=== PATIENT | female | born 1980 | race Caucasian/White ===

== ENCOUNTER 2016-12-04 05:34 | Day surgery (SDC) | payer OTHER ==
[2016-12-03 10:06] VITALS: BMI 26.8
[~2016-12-04] VITALS: Ht 160 cm; Wt 69.5 kg
[2016-12-04] VITALS (11 sets, daily range): BP systolic 109–127; BP diastolic 58–73; PULSE 63–78; RESP 13–23; Ht 160 cm; Wt 69.5 kg
[2016-12-04] MEDS ORDERED: CEFAZOLIN 2 GM/50 ML (PMX) 50 ML IVPB SCH (06:00)
[2016-12-04] MEDS ORDERED: TOBRAMYCIN 0.3% 3.5 GM OPH OINT ONE ×2 (06:49→08:49)
[2016-12-04] MEDS ORDERED: LIDOCAINE 4% (MPF) 5 ML INJ ONE (06:50)
[2016-12-04] MEDS ORDERED: CEFAZOLIN 1 GM INJ ONE (07:00)
--- NOTE | 2016-12-04 07:22 | HPN ---
Date/Time of Note Date/Time of Note DATE: 12/04/16 TIME: 07:22 Interval H&P Admission Note Pt. seen H&P reviewed: No system changes JED TRIANA MD Dec 04, 2016 07:22
[2016-12-04] MEDS ORDERED: morphine 2 MG INJ IV PRN (07:30)
[2016-12-04] MEDS ORDERED: ONDANSETRON 4 MG INJ IV PRN ×2 (07:30→08:30)
[2016-12-04] MEDS ORDERED: IBUPROFEN 400 MG TAB PO PRN (07:30)
[2016-12-04] MEDS ORDERED: FENTAnyl 50 MCG/ML VIAL ONE (07:32)
[2016-12-04] MEDS ORDERED: MIDAZOLAM 1 MG/ML 2 ML INJ ONE (07:33)
[2016-12-04] MEDS ORDERED: LIDOCAINE 1% (STERILE-PAK) 30 ML INJ ONE (07:33)
[2016-12-04] MEDS ORDERED: LIDOCAINE 1% (MPF) 30 ML INJ INJ ONE (08:02)
[2016-12-04] MEDS ORDERED: FENTAnyl 50 MCG/ML VIAL IV PRN (08:30)
[2016-12-04] MEDS ORDERED: DIPHENHYDRAMINE 50 MG INJ IV PRN (08:30)
[2016-12-04] MEDS ORDERED: ONDANSETRON 4 MG INJ ONE (08:52)
--- NOTE | 2016-12-04 09:05 | OPR ---
Date/Time of Note Date/Time of Note DATE: 12/04/16 TIME: 08:58 Operative Report Free Text/Dictation Plastic Surgery Operative Report Preoperative diagnosis: left eyelid basal cell Postoperative diagnosis: Same Procedure: Excision of left eyelid basal cell and advancement flap closure Surgeon: Manpreet Fofana.:n/a Anesthesia:sedation EBL:min IV fluids:per flow sheet Findings:n/a Complications:none Dispo:home Indications for procedure: 36-year-old female presents today for excision of a left eyelid basal cell and flap closure. The risks, benefits, alternatives of performing this procedure were discussed with the patient including the risks of bleeding, infection, wound healing problems, eyelid distortion, asymmetry, need for revision, and the patient states that she understands these risks and would like to proceed with the procedure. All questions were answered, no guarantees were given with regards to the outcome of this procedure. Description of procedure: The patient was brought to the operating room at [facility] where sedation was induced. The patient was then prepped and draped in usual sterile fashion. A 1 mm border was marked around the perimeter of the lesion. 3 cc of 1% lidocaine were injected into the surgical site. The 15 blade was then used to excise the marked area in its entirety. This was marked short stitch superior and long stitch lateral. This was sent for pathology. The medial margin was positive and therefore an additional specimen was excised. This margin was negative. Total area of excision was 1.2 x 0.7 cm. the wound was inspected, and in order to minimize eyelid distortion, an inferiorly based advancement flap was marked. An additional 2 cc of local anesthetic were injected into the flap. The border was then incised with a 15 blade. The flap was undermined with scissors and was gently advanced superiorly into the defect. This sat in place without undue tension. Therefore it was anchored in place with 5-0 Vicryl suture and then 5-0 nylon suture. Total size of the flap was 1 x 1 cm. Patient tolerated procedure well, there were no complications, follow-up information and wound care instructions were given. JED TRIANA MD Dec 04, 2016 09:05
== END 2016-12-04 12:05 | disposition home or self-care (01) ==
LOC: SDS 05:34 → EDBD 07:30 → SDS 12:05
PROVIDERS: ATTEND Surgery Plastic and Reconstructive Surgery
DX: C44.119 Basal cell carcinoma of skin of left eyelid, including canthus (principal)
CPT/HCPCS: 14060; 84703; 88305; 88331; J0690; J2250; J3010; Z7512; Z7610; J2405

== ENCOUNTER 2017-01-20 06:36 | Day surgery (SDC) | payer OTHER ==
[2017-01-20] VITALS (11 sets, daily range): BP systolic 104–121; BP diastolic 53–71; PULSE 70–80; RESP 16–22; Ht 160 cm; Wt 70.3 kg
[~2017-01-20] VITALS: Ht 160 cm; Wt 70.3 kg
[~2017-01-20 06:36] MED LIST: ATROPINE 1 MG/10 ML SYRINGE IV PRN; BUPIVACAINE 0.25%/EPI (SDV) 30 ML INJ ONE; CEFAZOLIN 2 GM/50 ML (PMX) 50 ML IVPB ONE; DEXAMETHASONE 4 MG/ML 1 ML INJ ONE; DIPHENHYDRAMINE 50 MG INJ IV PRN; EPHEDrine SULFATE 50 MG/5 ML SYG IV PRN; FENTAnyl 50 MCG/ML VIAL IV PRN; FENTAnyl 50 MCG/ML VIAL ONE; GLYCOPYRROLATE 0.4 MG INJ ONE; LABETALOL HCL 20MG INJ IV PRN; LIDOCAINE 2% (SDV) 5 ML INJ ONE; MEPERIDINE 25 MG INJ IV PRN; MIDAZOLAM 1 MG/ML 2 ML INJ IV PRN; MIDAZOLAM 1 MG/ML 2 ML INJ ONE; NEOSTIGMINE 3 MG/3 ML SYRINGE ONE; ONDANSETRON 4 MG INJ IV PRN; ONDANSETRON 4 MG INJ ONE; PROPOFOL 20 ML ONE; ROCURONIUM 50 MG INJ ONE; SOD CHLORIDE 0.9% 1,000 ML IV SCH; hydrALAzine 20 MG INJ IV PRN
[2017-01-20 07:20] LABS: ADD SCAN DIFF NO
[2017-01-20 07:24] LABS: BASOPHIL # 0.1 10^3/ul (0.0-0.1); BASOPHILS % 0.9 % (0.0-2.0); EOSINOPHILS # 0.2 10^3/ul (0.0-0.5); EOSINOPHILS % 3.8 % (0.0-7.0); HEMATOCRIT 39.2 % (37.0-47.0); HEMOGLOBIN 13.2 g/dl (12.0-16.0); LYMPHOCYTES # 2.4 10^3/ul (0.8-2.9); LYMPHOCYTES % 42.5 % (15.0-51.0); MEAN CORPUSCULAR HEMOGLOBIN 28.8 pg (29.0-33.0); MEAN CORPUSCULAR HGB CONC 33.7 g/dl (32.0-37.0); MEAN CORPUSCULAR VOLUME 85.6 fl (82.0-101.0); MEAN PLATELET VOLUME 9.2 fl (7.4-10.4); MONOCYTE # 0.5 10^3/ul (0.3-0.9); MONOCYTES % 8.1 % (0.0-11.0); NEUTROPHIL # 2.5 10^3/ul (1.6-7.5); NEUTROPHILS % 44.3 % (39.0-77.0); PLATELET COUNT 283 10^3/UL (140-415); RED BLOOD COUNT 4.58 10^6/ul (4.20-5.40); RED CELL DISTRIBUTION WIDTH 12.8 % (11.5-14.5); WHITE BLOOD COUNT 5.6 10^3/ul (4.8-10.8)
[2017-01-20] MEDS ORDERED: SUCCINYLCHOLINE CHLORIDE 100 MG/5 ML SYG IV ONE (07:29)
[2017-01-20 07:42] LABS: INR 0.95; PROTIME 12.7 Sec (12.2-14.2)
[2017-01-20 07:44] LABS: ALBUMIN/GLOBULIN RATIO 1.21; BILIRUBIN,INDIRECT 0.5 mg/dl (0-1.1); BILIRUBIN,TOTAL 0.5 mg/dl (0.2-1.3); TOTAL PROTEIN 7.3 g/dl (6.1-8.1)
[2017-01-20 07:49] LABS: CALCIUM 8.7 mg/dl (8.4-10.2); CREATININE 0.6 mg/dl (0.44-1.00); POTASSIUM 3.7 mmol/L (3.5-5.1)
[2017-01-20] MEDS ORDERED: BUPIVACAINE 0.25%/EPI (SDV) 30 ML INJ INJ ONE (08:02)
--- NOTE | 2017-01-20 08:52 | OPR ---
Date/Time of Note Date/Time of Note DATE: 01/20/17 TIME: 08:44 Operative Report Procedure Date: January 20, 2017 Preoperative Diagnosis Chronic cholecystitis/cholelithiasis Postoperative Diagnosis Chronic cholecystitis/cholelithiasis Operation Performed Laparoscopic cholecystectomy Surgeon: ED ANDREWS MD Anesthesia: general Anesthesiologist: JESI RUSS MD Estimated Blood Loss: minimal Specimens Gallbladder Complications: None Pt Condition Post Procedure: stable Disposition: PACU Indications The patient is a 36-year-old female who presented to the office with right upper quadrant abdominal pain for the past 8 months. The patient had clinical signs and symptoms of chronic cholecystitis and biliary colic which was confirmed via an ultrasound which showed the presence of gallstones. The patient was scheduled for laparoscopic cholecystectomy; possible open as definitive treatment to prevent further sequelae of gallstone disease which include but are not limited to: Gangrenous cholecystitis, choledocholithiasis, gallstone pancreatitis, ascending cholangitis, etc. All risks and benefits of the procedure including but not limited to: Wound infection, excessive bleeding , common bile duct injury, postoperative biliary leak, retained common bile duct stone, injury to intra-abdominal organs, conversion to open procedure etc. were all explained to the patient in full detail. She fully understood and wished to proceed with the procedure. Informed consent was therefore obtained. Operative\Procedure Findings Cholelithiasis. Changes consistent with chronic cholecystitis. Procedure Description The patient was operating room and placed supine on the operating table. Bilateral sequential compression devices were placed on both lower extremities. A dose of broad-spectrum perioperative intravenous antibiotics was given. After the induction of smooth general endotracheal anesthesia the patient's abdomen was prepped and draped in the standard surgical fashion. After performance of the surgical timeout a 5 mm incision was made in the inferior umbilicus and a Veress needle was used to access the intra-abdominal cavity atraumatically. Pneumoperitoneum was then obtained and the Veress needle was exchanged for a 5 mm trocar through which a 5 mm laparoscope was placed. Three further working ports were then placed a 12 mm port in the sub-xiphoid region and two 5 mm ports in the right upper quadrant. All port sites were anesthetized with 0.25% Marcaine with epinephrine prior to incision. Using atraumatic graspers the gallbladder was grasped and retracted superiorly and laterally exposing the area of Christianson's pouch. There were adhesions of the omentum to the anterior surface of the gallbladder. These were taken down using hook electrocautery. Dissection was begun in the area of Christianson's pouch using a combination of blunt dissection and hook electrocautery. There was a lot of scarring and inflammatory adhesions secondary to chronic cholecystitis. The cystic duct was identified as it entered straight into the neck of the gallbladder. It was dissected free of surrounding tissues and clipped proximally and distally x 3 and transected using EndoShears. Dissection was then continued posteriorly. The cystic artery was identified immediately posterior to the cystic duct. It was clipped proximally and transected distally using the hook electrocautery.. The gallbladder was then dissected off the liver bed using electrocautery. There was chronic scarring of the gallbladder to the liver bed. Once completely free the gallbladder was placed in an Endo Catch bag and withdrawn through the subxiphoid port site and passed off the field as specimen. Hemostasis was then inspected for and noted to be total. The abdomen was then irrigated with several liters of warm normal saline and the irrigant returned crystal clear. The fascia of the subxiphoid port site was then reapproximated using a Jet-close Endo Close device and 0 Vicryl suture. Pneumoperitoneum was then released and all remaining trochars were withdrawn under direct vision. The subcutaneous tissues were irrigated with more warm normal saline and further local anesthesia was applied around the skin of the incision sites. The skin was then reapproximated using 4-0 Monocryl sutures in subcuticular fashion. The incisions were cleaned and Dermabond was applied to the incisions and the patient was awoken from anesthesia and transported to the recovery room in stable condition. All counts were correct at the end of the case x 2. ED ANDREWS MD January 20, 2017 08:52
[2017-01-20] MEDS ORDERED: traMADol 50 MG TAB PO PRN (09:00)
[2017-01-20] MEDS ORDERED: ONDANSETRON 4 MG INJ IV PRN (09:00)
[2017-01-20] MEDS ORDERED: KETOROLAC 30 MG INJ IV PRN (09:00)
[2017-01-20] MEDS ORDERED: IBUPROFEN 600 MG TAB PO PRN (22:00)
== END 2017-01-20 12:27 | disposition home or self-care (01) ==
LOC: SDS 06:36
PROVIDERS: ATTEND Surgery
DX: K80.10 Calculus of gallbladder with chronic cholecystitis without obstruction (principal)
CPT/HCPCS: 47562; 80053; 85025; 85610; 85730; 88304; J1100; J2250; J2405; J2710; J3010; J7999; Z7512; Z7610